=== PATIENT | female | born 1945 | race Caucasian/White ===

== ENCOUNTER 2022-03-15 07:28 | Day surgery (SDC) | payer MEDICARE ==
[~2022-03-15] VITALS: Ht 157.5 cm; Wt 43.2 kg
[2022-03-15 07:38] VITALS: BP 139/84
[2022-03-15] MEDS ORDERED: fentaNYL/PF 50MCG/1 ML 2ML syringe ONE (07:38)
[2022-03-15] MEDS ORDERED: LIDOcaine Viscous 15ml cup ONE (07:39)
[2022-03-15] MEDS ORDERED: diphenhydrAMINE 50 mg/ml inj ONE (07:39)
[2022-03-15] MEDS ORDERED: MIDAZolam 1 MG/ML 5ML VIAL ONE (07:39)
[2022-03-15] MEDS ORDERED: CARB-395 PO (07:52)
[2022-03-15] MEDS ORDERED: RASA1TAB PO (07:53)
[2022-03-15] MEDS ORDERED: PRAM0.253 PO (07:53)
[2022-03-15 09:00] VITALS: BP 118/69
[2022-03-15 09:10] VITALS: BP 114/65
[2022-03-15 09:20] VITALS: BP 111/64
[2022-03-15 09:30] VITALS: BP 114/65
== END 2022-03-15 09:50 | disposition home or self-care (01) ==
LOC: GI LAB 07:28
PROVIDERS: ATTEND Internal Medicine Gastroenterology
DX: R13.10 Dysphagia, unspecified (principal); Z79.899 Other long term (current) drug therapy; Z98.890 Other specified postprocedural states
CPT/HCPCS: 43239; G0500; J1200; J2250; J3010; J7030; Z7512; 88305; 99152; A4620